=== PATIENT | female | born 1955 | race Hispanic/Latino ===

== ENCOUNTER 2018-04-03 09:50 | Outpatient (CLI) | payer BC | END 2018-04-03 09:51 | disposition home or self-care (01) | LOC: DTY/OP 09:50 | PROVIDERS: ATTEND Surgery | DX: E66.01 Morbid (severe) obesity due to excess calories (principal) | CPT/HCPCS: 97802 ==

== ENCOUNTER 2018-05-08 08:04 | Outpatient (CLI) | payer BC ==
--- NOTE | 2018-05-08 09:05 | RAD ---
FExam: Barium swallow esophagram HISTORY: Gastric lap band. Esophageal pain. Comparison none FINDINGS: [employer] chest radiograph: Stimulator projects over the cervical spine. Cervical fusion hardwa re is noted. Gastric lap band appears to be appropriately positioned in the left upper quadrant. Normal cardiac silhouette. Lungs and pleural spaces are clear. No pneumothorax or osseous abnormaliti es. Thin barium administration: There is evidence of tertiary contractions and mild ectasia involving the distal thoracic esophagus. There are no extrinsic abnormalities. No persistent filling defects. Cont rast passes through the gastric lap band without difficulty. Cervical esophagus is unremarkable. Post procedure radiograph: Contrast opacified stomach and multiple normal caliber small bowel loops. IMPRESSION: Tertiary contractions and ectasia of the distal thoracic esophagus. No evidence of obstru ction at the level of the gastric lap band.
== END 2018-05-08 08:05 | disposition home or self-care (01) ==
LOC: RAD 08:04
PROVIDERS: ATTEND Surgery
DX: K21.9 Gastro-esophageal reflux disease without esophagitis (principal); I77.810 Thoracic aortic ectasia
CPT/HCPCS: 74220

== ENCOUNTER 2018-07-17 12:00 | Inpatient (IN) | payer BC ==
[2018-07-17 13:10] VITALS: BMI 31.6
[2018-07-23] MEDS ORDERED: Heparin 5,000 UNITS/ML VIAL ONE (06:30)
[2018-07-23] MEDS ORDERED: Bupivacaine/Epinephrine 0.25% 30 ML VIAL ONE (07:09)
[2018-07-23] MEDS ORDERED: Fentanyl 100 MCG/2 ML VIAL ONE ×3 (07:12→11:04)
[2018-07-23] MEDS ORDERED: Famotidine/PF 20 mg/2ml Vial ONE (07:13)
[2018-07-23] MEDS ORDERED: Ondansetron PF 4 MG/2 ML Vial IVP PRN ×2 (09:35→10:15)
[2018-07-23] MEDS ORDERED: Dextrose 5% in Water 1,000 ML IV PRN (09:35)
[2018-07-23] MEDS ORDERED: Hydrocodone-Acetamin 15 ML UDCUP PO PRN (09:35)
[2018-07-23] MEDS ORDERED: hydrALAZINE 20 MG/ML VIAL SLOW IVP PRN (09:35)
[2018-07-23] MEDS ORDERED: Dextrose 50% Abboject 50 ML SYRINGE SLOW IVP PRN (09:35)
[2018-07-23] MEDS ORDERED: Promethazine HCl 25 MG/ML VIAL IM PRN ×2 (09:35→10:15)
[2018-07-23] MEDS ORDERED: diphenhydrAMINE 50 MG/ML VIAL IVP PRN ×2 (09:35→10:15)
[2018-07-23] MEDS ORDERED: Promethazine HCl 25 MG/ML VIAL ONE (09:59)
[2018-07-23] MEDS ORDERED: Zolpidem Tartrate 5 MG TAB PO PRN (10:15)
[2018-07-23] MEDS ORDERED: diphenhydrAMINE 50 MG/ML VIAL IM PRN (10:15)
[2018-07-23] MEDS ORDERED: fentaNYL Citrate/PF 2,000 MCG in Sodium Chloride 0.9% 60 ML IV PRN (10:15)
[2018-07-23] MEDS ORDERED: diphenhydrAMINE 25 MG CAP PO PRN (10:15)
[2018-07-23] MEDS ORDERED: Naloxone HCl 0.4 mg/ml Vial IV PRN (10:15)
[2018-07-23] MEDS ORDERED: Communication Order-Pharmacy FS SCH (10:15)
--- NOTE | 2018-07-23 11:00 | OP ---
DATE OF PROCEDURE: 07/23/2018 PREOPERATIVE DIAGNOSES: 1. Hiatal hernia. 2. Lap band intolerance. 3. Morbid obesity. PROCEDURES PERFORMED: 1. Laparoscopic removal of lap band and port. 2. Repair of hiatal hernia. 3. Sleeve gastrectomy. INDICATIONS: A 63-year-old female, who has a lap band, was unable to tolerate any fill due to reflux, even unfilled, had tremendous reflux. Upper GI showed a moderate size hiatal hernia. FINDINGS: A moderate size hiatal hernia. A 38-Slovenian bougie used. DESCRIPTION OF PROCEDURE: After informed consent was obtained, the patient was taken to the operating room and given general endotracheal anesthesia, placed in the supine position. Abdomen was prepped and draped in usual fashion. Local anesthesia was infiltrated subcutaneously and deep, and a 12 mm incision was performed approximately 8 inches below the xiphoid slightly to the left. A Veress needle was inserted. Drop test was performed. Pneumoperitoneum was created to a volume of 2 L of carbon dioxide. Utilizing a bladeless 12-mm trocar and 0-degree laparoscope, direct visual entry into the abdominal cavity was performed. Pneumoperitoneum was created to a pressure of 15 mmHg. Under direct vision, a Carrie liver retractor was inserted. Left lobe of liver was retracted superiorly. The pylorus was identified and a 12 mm port placed on the right beneath it and two 12s placed left subcostal. The band tubing was identified and it was divided just distal to the pin. Then, the tubing was traced down to the buckle. The buckle was dissected out using sharp and blunt dissection. The capsule was opened up circumferentially and the lap band removed from around the upper stomach and then out of the abdomen. The hiatus was then dissected out and the hiatal hernia reduced. The omentum was taken off the greater curvature 5 cm from the pylorus utilizing the LigaSure. Short gastrics divided with LigaSure. Left crura was defined with LigaSure. Then, a 38-Slovenian bougie inserted direct into the stomach and a posterior crural plication was performed using 0 Ethibond in the Sew-Right and Ti-Knot device. Then, the bougie was directed further distal in the stomach into the antrum and a linear 60 mm green load stapler used to divide the antrum to the bougie, gold load along the bougie, and a series of blues through the angle of His. Intraoperative endoscopy was performed. The video endoscope was inserted under direct vision and advanced into the sleeve. The staple line inspected. There was no bleeding. Staple line then tested by inflating the new stomach with pressurized air and water. There was no air leak. Stomach was decompressed. Scope was removed. At this point, prior to removal, the port was excised. Then, the remnant stomach was grasped and brought out through the left upper subcostal incision, sent to pathology for further analysis. The fascia was closed with 0 Vicryl suture and the GraNee needle. Hemostasis was assured. Trocars and retractors were removed. The skin was closed with interrupted 4 L Rapide. Dermabond was applied. The patient tolerated the procedure well, transferred to Recovery in good condition. Sponge and needle count verified correct x2. Job ID: [id number]
[2018-07-23] MEDS: Ketorolac Tromethamine 30 MG/ML VIAL IVP SCH ×3 (12:38→23:04)
[2018-07-23] MEDS: D5 1/2 NS w/20 mEq KCL 1,000 ML IV SCH ×2 (12:39→23:04)
[2018-07-23] MEDS: CEFAZOLIN 2 GM in Premix Bag 1 BAG IVPB SCH ×2 (15:35→23:04)
[2018-07-24] MEDS: D5 1/2 NS w/20 mEq KCL 1,000 ML IV SCH ×2 (03:02→11:41)
[2018-07-24 05:44] LABS: #Eosinphils 0.3 thou/uL (0.0-0.7); #Monocytes 0.7 thou/uL (0.11-0.59); #Neutrophils 6.1 thou/uL (1.40-6.50); %Basophils 0.1 % (0.0-1.0); %Eosinophils 3.4 % (0.0-10.0); %Lymphocytes 12.3 % (21.0-51.0); %Monocytes 8.3 % (0.0-10.0); %Neutrophils 75.9 % (42.0-75.0); Hemoglobin 9.6 g/dL (12.0-16.0); Mean Corpuscular HGB CONC 31.4 g/dL (32.0-36.0); Mean Corpuscular Hemoglobin 26.4 pg (27.0-31.0); Mean Corpuscular Volume 84.1 fL (78.0-98.0); Mean Platelet Volume 8.1 fL (7.4-10.4); Platelet Count 279 thou/uL (130-400); RBC Distribution Width 13.6 % (11.5-14.5); Red Blood Cell (RBC) Count 3.64 mill/uL (4.20-5.40); White Blood Cell (WBC) Count 8.1 thou/uL (4.8-10.8)
[2018-07-24 06:00] LABS: Anion Gap 9 mmol/L (10-20); BUN (Urea Nitrogen) 8 mg/dL (9.8-20.1); Calc. Creatinine Clearance 85 mL/min (70-130); Calcium 8.5 mg/dL (7.8-10.44); Carbon Dioxide 25 mmol/L (23-31); Chloride 106 mmol/L (98-107); Estimated GFR-MDRD 59; Glucose 90 mg/dL (80-115); Potassium 4.7 mmol/L (3.5-5.1); Sodium 135 mmol/L (136-145)
[2018-07-24] MEDS: Ketorolac Tromethamine 30 MG/ML VIAL IVP SCH ×2 (06:16→11:40)
--- NOTE | 2018-07-24 08:57 | RAD ---
Esophagram HISTORY: Obesity. Bariatric surgery. FINDINGS: Single column contrast evaluation shows postoperative changes of the stomach consistent wit h recent gastric bypass/vertical sleep procedure. Some tortuosity and tertiary contractions of the distal esophagus apparent. After approximately 8 minutes, there was emptying of the stomach into the duodenum. No evidence of ob struction or leak. Fluoroscopy time 0.8 minutes. IMPRESSION: No evidence of complication.
[2018-07-24] MEDS ORDERED: Pantoprazole 40 MG VIAL IVP SCH (09:00)
[2018-07-24] MEDS ORDERED: Enoxaparin Sodium 40 MG/0.4 ML SYRINGE SC SCH (09:00)
[2018-07-24] MEDS ORDERED: Hydrocodone-Acetamin 15 ML UDCUP PO PRN (10:09)
[2018-07-24 11:30] VITALS: BP 122/64; TEMP 97.5
--- NOTE | 2018-07-25 05:51 | DIS ---
DATE OF ADMISSION: 07/23/2018 DATE OF DISCHARGE: 07/24/2018 DISCHARGE DIAGNOSES: Lap band intolerance, severe hiatal hernia, morbid obesity. PROCEDURE DURING ADMISSION: Laparoscopic removal of band and port, sleeve gastrectomy, repair of hiatal hernia, intraoperative esophagogastroscopy, and postoperative Gastrografin swallow. HOSPITAL COURSE: Patient was admitted, taken to the operating room, where she underwent removal of band and port, repair of hiatal hernia, sleeve gastrectomy. Postoperatively, swallow was fine, started on liquids, tolerating them well, discharged home on hydrocodone and Zofran. She will follow up with me in 2 weeks. Job ID: [id number]
== END 2018-07-24 12:55 | disposition home or self-care (01) | DRG 328 ==
LOC: SURG A 07-23 05:52 → EDSTATUS 07-23 12:00 → SURG B 07-23 12:19
PROVIDERS: ADMIT Surgery; ATTEND Surgery
PROC: 0DP64CZ Removal of Extraluminal Device from Stomach, Percutaneous Endoscopic Approach (ICD-10-PCS; principal; 2018-07-23)
PROC: 0BQT4ZZ Repair Diaphragm, Percutaneous Endoscopic Approach (ICD-10-PCS; 2018-07-23)
PROC: 0DB64Z3 Excision of Stomach, Percutaneous Endoscopic Approach, Vertical (ICD-10-PCS; 2018-07-23)
DX: K21.9 Gastro-esophageal reflux disease without esophagitis (principal); K44.9 Diaphragmatic hernia without obstruction or gangrene; Z96.651 Presence of right artificial knee joint; T85.858A Stenosis due to other internal prosthetic devices, implants and grafts, initial encounter; E66.01 Morbid (severe) obesity due to excess calories; I10 Essential (primary) hypertension; E78.5 Hyperlipidemia, unspecified; E03.9 Hypothyroidism, unspecified; M79.7 Fibromyalgia; Z90.49 Acquired absence of other specified parts of digestive tract; Z90.710 Acquired absence of both cervix and uterus; Z68.31 Body mass index [BMI] 31.0-31.9, adult
CPT/HCPCS: 36415; 74241; 80048; 85025; 88307; 88312; C9113; J0131; J0690; J1644; J1650; J1885; J2405; J2550; J3010; J3490; S0028

== ENCOUNTER 2018-08-06 15:47 | Emergency (ER) | payer BC ==
[2018-08-06 16:25] LABS: #Basophils 0.1 thou/uL (0.0-0.2); #Eosinphils 1.6 thou/uL (0.0-0.7); #Lymphocytes 2.2 thou/uL (1.20-3.40); #Monocytes 0.7 thou/uL (0.11-0.59); #Neutrophils 3.3 thou/uL (1.40-6.50); %Basophils 1.6 % (0.0-1.0); %Eosinophils 20.6 % (0.0-10.0); %Lymphocytes 27.8 % (21.0-51.0); %Monocytes 8.8 % (0.0-10.0); %Neutrophils 41.2 % (42.0-75.0); Hemoglobin 12.3 g/dL (12.0-16.0); Mean Corpuscular HGB CONC 32.6 g/dL (32.0-36.0); Mean Corpuscular Hemoglobin 26.6 pg (27.0-31.0); Mean Corpuscular Volume 81.7 fL (78.0-98.0); Mean Platelet Volume 8.6 fL (7.4-10.4); Platelet Count 360 thou/uL (130-400); RBC Distribution Width 13.6 % (11.5-14.5); Red Blood Cell (RBC) Count 4.63 mill/uL (4.20-5.40); White Blood Cell (WBC) Count 7.9 thou/uL (4.8-10.8)
[2018-08-06] MEDS ORDERED: Thiamine HCl 200 MG/2 ML VIAL SLOW IVP SCH (16:30)
[2018-08-06] MEDS ORDERED: Promethazine HCl 25 MG/ML VIAL ONE (16:30)
--- NOTE | 2018-08-06 16:41 | CT ---
CT Abdomen Pelvis W Con: 08/06/2018 4:04 PM CLINICAL INFORMATION: Surgery 2 weeks ago with vomiting for the past 3 days COMPARISON: None. TECHNIQUE: Multiple contiguous axial images were obtained and a CT of the abdomen and pelvis with IV contrast. Oral contrast was administered. Coronal reformats were performed. FINDINGS: Lower Chest: within normal limits. Abdomen: Liver: within normal limits. Bile Ducts: Normal caliber. Gallbladder: Surgically absent Pancreas: within normal limits. Spleen: within normal limits. Adrenals: within normal limits. Kidneys: within normal limits. Pelvis: Reproductive Organs: Status post hysterectomy Ureters: within normal limits. Bladder: within normal limits. Peritoneum: No ascites or free air, no fluid collection. Bowel: Postsurgical changes are seen at the gastroesophageal junction and the patient also appears to be status post gastric sleeve procedure. The small bowel and colon are normal in caliber. The contrast given passed through the gastroesophageal junction and gastric sleeve into the small bowel. Mesentery and Retroperitoneum: No enlarged mesenteric or retroperitoneal lymph nodes. Vessels: Normal. Abdominal Wall: Stranding changes in the anterior abdominal wall likely represent trocar sites. Bones: Degenerative changes and postsurgical changes in the spine. A spinal stimulation device is see n with its tip in the mid thoracic spine. IMPRESSION: No evidence of acute intraabdominal\pelvic abnormality.
[2018-08-06 16:44] LABS: ALT (SGPT) 14 U/L (8-55); AST (SGOT) 25 U/L (5-34); Albumin 4.4 g/dL (3.4-4.8); Alkaline Phosphatase 128 U/L (40-150); Anion Gap 17 mmol/L (10-20); BUN (Urea Nitrogen) 8 mg/dL (9.8-20.1); Bilirubin, Total 0.4 mg/dL (0.2-1.2); Calc. Creatinine Clearance 0 mL/min (70-130); Calcium 9.9 mg/dL (7.8-10.44); Carbon Dioxide 21 mmol/L (23-31); Chloride 102 mmol/L (98-107); Estimated GFR-MDRD 48; Globulin 3.9 g/dL (2.4-3.5); Glucose 85 mg/dL (80-115); Lipase 29 U/L (8-78); Potassium 3.5 mmol/L (3.5-5.1); Protein, Total 8.3 g/dL (6.0-8.3); Sodium 136 mmol/L (136-145)
== END 2018-08-06 18:05 | disposition home or self-care (01) ==
LOC: ERS 15:47
DX: K91.0 Vomiting following gastrointestinal surgery (principal); K21.9 Gastro-esophageal reflux disease without esophagitis; I10 Essential (primary) hypertension
CPT/HCPCS: 74177; 80053; 83690; 85025; 96361; 96365; 96375; J2550; J3411

== ENCOUNTER 2018-09-23 10:40 | Outpatient (CLI) | payer BC | END 2018-09-23 10:41 | disposition home or self-care (01) | LOC: CTENTCT 10:40 | PROVIDERS: ATTEND Physician Assistant | DX: J32.9 Chronic sinusitis, unspecified (principal) | CPT/HCPCS: 70486 ==

== ENCOUNTER 2019-09-10 09:04 | Emergency (ER) | payer BC, OTHER ==
[2019-09-10 09:26] LABS: #Eosinphils 0.2 thou/uL (0.0-0.7); #Monocytes 0.9 thou/uL (0.11-0.59); #Neutrophils 8.6 thou/uL (1.40-6.50); %Eosinophils 1.5 % (0.0-10.0); %Lymphocytes 17.2 % (21.0-51.0); %Monocytes 7.7 % (0.0-10.0); %Neutrophils 73.7 % (42.0-75.0); Hemoglobin 9.8 g/dL (12.0-16.0); Mean Corpuscular HGB CONC 31.8 g/dL (32.0-36.0); Mean Corpuscular Hemoglobin 29.1 pg (27.0-31.0); Mean Corpuscular Volume 91.7 fL (78.0-98.0); Mean Platelet Volume 8.1 fL (7.4-10.4); Platelet Count 217 thou/uL (130-400); RBC Distribution Width 14.2 % (11.5-14.5); Red Blood Cell (RBC) Count 3.37 mill/uL (4.20-5.40); White Blood Cell (WBC) Count 11.6 thou/uL (4.8-10.8)
[2019-09-10] MEDS ORDERED: Naloxone HCl 0.4 mg/ml Vial ONE (09:26)
[2019-09-10 09:47] LABS: ALT (SGPT) 17 U/L (8-55); AST (SGOT) 28 U/L (5-34); Albumin 3.3 g/dL (3.4-4.8); Alkaline Phosphatase 61 U/L (40-110); Anion Gap 13 mmol/L (10-20); BUN (Urea Nitrogen) 26 mg/dL (9.8-20.1); Bilirubin, Total 0.4 mg/dL (0.2-1.2); Calc. Creatinine Clearance 0 mL/min (70-130); Calcium 8.2 mg/dL (7.8-10.44); Carbon Dioxide 23 mmol/L (23-31); Chloride 103 mmol/L (98-107); Estimated GFR-MDRD 36; Globulin 2.6 g/dL (2.4-3.5); Glucose 84 mg/dL (80-115); Lipase 11 U/L (8-78); Magnesium 1.8 mg/dL (1.6-2.6); Protein, Total 5.9 g/dL (6.0-8.3); Sodium 135 mmol/L (136-145)
--- NOTE | 2019-09-10 10:02 | RAD ---
PORTABLE CHEST 1 VIEW: Date: 09/10/2019 Time: 0953 hours HISTORY: Syncope. FINDINGS: Comparison made with exam of 07/17/2018. There is continued elevation of the right hemidiaphragm. The heart size is normal. No focal areas of consolidation, pneumothoraces, or pleural effusions are seen. Postop changes in the lower cervical sp ine again seen. Interval postop changes of left shoulder arthroplasty are noted. Dorsal stimulator le ads are present in the spine. IMPRESSION: No acute process. POS: MEME
--- NOTE | 2019-09-10 10:44 | CT ---
Exam: Head CT without contrast HISTORY: Syncope. COMPARISON: none FINDINGS: Hemorrhage: No intraparenchymal hemorrhage or extra-axial hematoma. Brain parenchyma: Cortical haney-white matter differentiation is preserved. No mass effect or midline shift. Basilar cisterns are patent. Ventricular system: Ventricles and sulci are patent and symmetric. Calvarium: Intact. Scalp: Soft tissue swelling and subcutaneous emphysema involving the left temporal scalp and left per i zygomatic soft tissues, compatible with posttraumatic change. Sinuses and mastoid air cells: Adequate aeration. IMPRESSION: 1. Posttraumatic changes along the left scalp facial soft tissues. 2. No intracranial posttraumatic sequelae.
[2019-09-10 11:12] LABS: Bilirubin Negative (Negative); Blood, Urine Negative (Negative); Clarity Clear (Clear); Glucose, Urine (Dipstick) Normal (Negative); Ketone, Urine Negative (Negative); Leukocyte Negative Leu/uL (Negative); Nitrite Negative (Negative); Protein, Urine (Dipstick) Negative (Neg-Trace); Specific Gravity, Urine 1.007 (1.002-1.036); Urobilinogen Normal mg/dL (Less than 2); pH, Urine 5.5 (5.0-9.0)
== END 2019-09-10 12:36 | disposition home or self-care (01) ==
LOC: ERS 09:04
DX: R55 Syncope and collapse (principal); K21.9 Gastro-esophageal reflux disease without esophagitis; I10 Essential (primary) hypertension; Z79.899 Other long term (current) drug therapy
CPT/HCPCS: 36416; 51701; 70450; 71045; 80053; 81003; 83690; 83735; 84484; 85025; 93005; 94760; 96361; 96374; J2310